=== PATIENT | male | born 1955 | race Hispanic/Latino ===

== ENCOUNTER 2017-06-22 14:20 | Outpatient (CLI) | payer SELFPAY | END 2017-06-22 14:21 | disposition home or self-care (01) | LOC: BICRAD 14:20 | PROVIDERS: ATTEND Nurse Practitioner Family | DX: R05 Cough (principal) | CPT/HCPCS: 71020 ==

== ENCOUNTER 2017-06-22 17:49 | Emergency (ER) | payer SELFPAY ==
[2017-06-22 19:08] LABS: #Eosinphils 0.2 thou/uL (0.0-0.7); #Lymphocytes 1.1 thou/uL (1.20-3.40); #Monocytes 0.6 thou/uL (0.11-0.59); #Neutrophils 3.3 thou/uL (1.40-6.50); %Basophils 0.3 % (0.0-1.0); %Eosinophils 3.3 % (0.0-10.0); %Lymphocytes 20.9 % (21.0-51.0); %Monocytes 11.1 % (0.0-10.0); Hematocrit 45.7 % (42.0-52.0); Mean Platelet Volume 9.8 fL (7.4-10.4); Red Blood Cell (RBC) Count 4.78 mill/uL (4.70-6.10); White Blood Cell (WBC) Count 5.2 thou/uL (4.8-10.8)
[2017-06-22 19:29] LABS: ALT (SGPT) 25 U/L (8-55); AST (SGOT) 28 U/L (5-34); Alkaline Phosphatase 72 U/L (40-150); Anion Gap 13 mmol/L (10-20); BUN (Urea Nitrogen) 15 mg/dL (8.4-25.7); Bilirubin, Total 0.3 mg/dL (0.2-1.2); Calc. Creatinine Clearance 0 mL/min (70-130); Calcium 9.5 mg/dL (7.8-10.44); Carbon Dioxide 26 mmol/L (23-31); Chloride 102 mmol/L (98-107); Estimated GFR-MDRD Greater than 90; Globulin 3.1 g/dL (2.4-3.5); Protein, Total 7.1 g/dL (5.8-8.1)
[2017-06-22 19:30] LABS: Lactic Acid - Sepsis 2.4 mmol/L (0.5-2.2)
[2017-06-22] MEDS ORDERED: methylPREDNISolone Sod Succ/PF 125 MG/2 ML VIAL ONE (21:45)
[2017-06-22] MEDS ORDERED: Water For Inject, Bacteriostat 30 ML ONE (21:49)
[2017-06-22] MEDS ORDERED: Albuterol Sulfate 2.5 mg/3 ml Neb ONE (21:54)
--- NOTE | 2017-06-22 22:08 | RAD ---
PA AND LATERAL CHEST: 06/22/17 HISTORY: Cough. Heart size and mediastinum are within normal limits. The lungs are clear of infiltrates. No significa nt bony findings. IMPRESSION: No active intrathoracic disease. POS: [facility]
== END 2017-06-22 23:54 | disposition home or self-care (01) ==
LOC: ERS 17:49
DX: J11.1 Influenza due to unidentified influenza virus with other respiratory manifestations (principal); E11.9 Type 2 diabetes mellitus without complications; E78.5 Hyperlipidemia, unspecified; Z79.84 Long term (current) use of oral hypoglycemic drugs; Z79.899 Other long term (current) drug therapy
CPT/HCPCS: 36415; 71020; 80053; 83605; 85025; 87040; 94640; 96361; 96374; J2930; J7611